=== PATIENT | male | born 1950 | race Caucasian/White ===

== ENCOUNTER → 2017-01-20 | Outpatient (CLI) | payer OTHER, MEDICARE | LOC: FIMAGING 15:45 | PROVIDERS: ATTEND Family Medicine | DX: R15.9 Full incontinence of feces (principal); M51.36 Other intervertebral disc degeneration, lumbar region; M47.896 Other spondylosis, lumbar region; M12.88 Other specific arthropathies, not elsewhere classified, other specified site; M51.26 Other intervertebral disc displacement, lumbar region ==

== ENCOUNTER → 2017-03-09 | Outpatient (CLI) | payer OTHER, MEDICARE | LOC: FIMAGING 08:46 | PROVIDERS: ATTEND Psychiatry & Neurology Neurology | DX: M48.04 Spinal stenosis, thoracic region (principal) ==

== ENCOUNTER → 2018-02-20 | Outpatient (CLI) | payer OTHER, MEDICARE | LOC: FIMAGING 09:03 | PROVIDERS: ATTEND Podiatrist | DX: M79.672 Pain in left foot (principal); R93.6 Abnormal findings on diagnostic imaging of limbs ==

== ENCOUNTER → 2018-07-24 | Outpatient (CLI) | payer OTHER, MEDICARE | LOC: FIMAGING 10:43 | PROVIDERS: ATTEND Family Medicine | DX: R05 Cough (principal); R06.2 Wheezing ==